=== PATIENT | female | born 1995 | race Caucasian/White ===

== ENCOUNTER 2018-12-28 15:42 | Outpatient (CLI) | payer MEDICAID ==
[~2018-12-28] VITALS: Ht 152.4 cm; Wt 73.9 kg
[2018-12-28 16:02] VITALS: Ht 152.4 cm; Wt 73.9 kg
[2018-12-28 16:03] VITALS: BP 131/60
[2018-12-28] MEDS ORDERED: PREN1TAB71 PO (16:05)
--- NOTE | 2018-12-28 17:16 | PN ---
Triage Information Date/Time Reason for visit: postdate for NST BPP Weeks of Gestation 40+ /Para 1/0 Diabetes: none Hypertention: none Objective Vital Signs Date Temp Pulse Resp B/P (MAP) Pulse Ox O2 O2 Flow FiO2 Time Delivery Rate 12/28/18 98.3 131/60 16:03 (83) Heart Rate: 140's Contractions: None Disposition: Discharge Assessment/Plan BPP 06/30 Questions answered Follow up with provider Precautions discussed KAM LYON M.D. Dec 28, 2018 17:16
--- NOTE | 2018-12-28 17:19 | TRIAGE ---
OB Triage Datetime Report Generated by CPN: 12/28/2018 17:19 Datetime: 12/28/2018 16:17 Comments: US AT BEDSIDE Datetime: 12/28/2018 16:11 Arrived By: Ambulatory Arrived From: [facility] Chief Complaint: SENT FROM CLINIC FOR NST BPP POST DATES Movement: Present Contractions: Denies/Absent Rupture of Membranes: Denies Vaginal Bleeding: None Vaginal Discharge: Denies Recent Sexual Intercouse: Denies Abdominal Trauma: Not Applicable Patient Complaints: Other Time Provider Notified: 12/28/2018 17:10 Provider Notified: DR. LYON Initial Plan: NST BPP Datetime: 12/28/2018 16:10 Stage of : OB Triage Assessment Type: Triage Maternal Assessment Level of Consciousness: Fully Conscious DTR's/Clonus: DTRs 2+; No Clonus Headache: Denies Blurred Vision: No Respiratory Effort: Unlabored; Regular Rhythm; Equal Expansion Breath Sounds, Left: Clear and Equal Breath Sounds, Right: Clear and Equal Nausea/Vomiting: Denies RUQ Epigastric Pain: Denies Lower Extremities Edema: None Degree: None Upper Extremities Edema: None Degree: None Facial Edema: None Temperature Route: Oral Fall Risk Assessment History of Falling: (0) No Secondary Diagnosis: (0) No Ambulatory Aid: (0) Bedrest/Nurse Assist IV Therapy: (0) No Gait: (0) Normal/Bedrest/Immobile Mental Status: (0) Oriented to Own Ability Fall Score: 0 Fall Risk Score Definition: No Risk: No action required Labor Evaluation Monitor Mode: External Heart Rate Monitor Mode: External US Pain Assessment Pain Scale: 0 Vaginal Exam Dilatation (cms): 0.0 Effacement (%): 50 Station: -3 Exam By: Cliff NORTH
== END 2018-12-28 17:44 | disposition home or self-care (01) ==
LOC: OBT 15:42 → L-D 15:43 → OBT 17:44
PROVIDERS: ATTEND Obstetrics & Gynecology
DX: O48.0 Post-term pregnancy (principal); O36.8330 Maternal care for abnormalities of the fetal heart rate or rhythm, third trimester, not applicable or unspecified; Z3A.40 40 weeks gestation of pregnancy
CPT/HCPCS: 76818; Z7500; G0463